=== PATIENT | female | born 1985 | race Caucasian/White ===

== ENCOUNTER 2020-12-27 15:28 | Emergency (ER) | payer OTHER ==
[2020-12-27 17:20] LABS: HEMOGLOBIN 14.4 gm/dl (12.3-15.3); RED BLOOD COUNT 4.51 M/UL (4.00-5.10); WHITE BLOOD COUNT 10.4 K/UL (4.5-11.0)
[2020-12-27 17:39] LABS: BUN/CREATININE RATIO 13 (0-10)
[2020-12-27] MEDS ORDERED: PRENATAL VITAM1 EAC5 PO (19:39)
== END 2020-12-27 19:56 | disposition home or self-care (01) ==
LOC: ER1 15:28
PROVIDERS: Family Medicine
DX: O99.891 Other specified diseases and conditions complicating pregnancy (principal); R10.2 Pelvic and perineal pain; Z88.5 Allergy status to narcotic agent; O99.331 Smoking (tobacco) complicating pregnancy, first trimester; F17.200 Nicotine dependence, unspecified, uncomplicated; Z3A.01 Less than 8 weeks gestation of pregnancy
CPT/HCPCS: 76817; 80053; 81001; 84702; 84703; 85025; 86900; 86901; 99284